=== PATIENT | female | born 1950 | race Two or more races ===

== ENCOUNTER 2023-07-21 10:11 | Emergency (ER) | payer OTHER, MEDICAID ==
[~2023-07-21] VITALS: Ht 154.9 cm; Wt 52.3 kg
[2023-07-21 11:18] VITALS: BP 97/64; PULSE 70; RESP 18; TEMP 98.7; O2SAT 95
[2023-07-21] MEDS ORDERED: PRED20TA2 PO (11:43)
[2023-07-21] MEDS ORDERED: ACET-1080 PO (11:43)
== END 2023-07-21 11:44 | disposition home or self-care (01) ==
LOC: ER 10:11
DX: M50.30 Other cervical disc degeneration, unspecified cervical region (principal); M54.12 Radiculopathy, cervical region; J44.9 Chronic obstructive pulmonary disease, unspecified; Z79.899 Other long term (current) drug therapy; Z88.5 Allergy status to narcotic agent
CPT/HCPCS: 72040